=== PATIENT | male | born 1975 | race Caucasian/White ===

== ENCOUNTER 2020-03-24 18:16 | Emergency (ER) | payer MEDICAID ==
[~2020-03-24] VITALS: Ht 165.1 cm; Wt 62.1 kg
[2020-03-24 18:26] VITALS: Ht 165.1 cm; Wt 62.1 kg
[2020-03-24 18:52] VITALS: BP 143/82
== END 2020-03-24 18:52 | disposition home or self-care (01) ==
LOC: ED 18:16
DX: T50.905A Adverse effect of unspecified drugs, medicaments and biological substances, initial encounter (principal); Y92.89 Other specified places as the place of occurrence of the external cause